=== PATIENT | male | born 1960 | race African-American/Black ===

== ENCOUNTER 2019-04-13 10:24 | Emergency (ER) | payer SELFPAY ==
[~2019-04-13] VITALS: Ht 182.9 cm; Wt 95.5 kg
[2019-04-13] MEDS ORDERED: KETOROLAC TROMETHAMINE 30 MG/ML VIAL IM ONE (11:45)
[2019-04-13] MEDS ORDERED: IOVERSOL 350 MG/ML 100 ML VIAL ONE (14:45)
[2019-04-13 15:11] LABS: BASOPHILS % (AUTO) 1.5 % (0.0-2.0); EOSINOPHILS % (AUTO) 3.7 % (1.0-6.0); HEMATOCRIT 39.3 % (41-53); HEMOGLOBIN 13.2 g/dL (13.5-17.5); LYMPHOCYTES # (AUTO) 1.4 K/uL (1.0-4.8); LYMPHOCYTES % (AUTO) 19.5 % (22.0-44.0); MEAN CORPUSCULAR HEMOGLOBIN 31.7 pg (26.0-34.0); MEAN CORPUSCULAR HGB CONC 33.6 G/dL (31.0-37.0); MEAN CORPUSCULAR VOLUME 95 fL (80-100); MONOCYTES # (AUTO) 0.8 K/uL (0.1-1.0); MONOCYTES % (AUTO) 11.3 % (2.0-9.0); NEUTROPHILS # (AUTO) 4.5 K/uL (1.8-7.7); PLATELET COUNT (AUTO) 278 K/uL (150-450); RED BLOOD CELL COUNT(AUTO) 4.16 MIL/uL (4.50-5.90); RED CELL DISTRIBUTION WIDTH 13.2 % (11.5-14.5)
[2019-04-13 15:42] LABS: ANION GAP 9 mmol/L (8-16); CARBON DIOXIDE 31 mmol/L (22-29); CHLORIDE 99 mmol/L (98-107); GLOMERULAR FILTR. RATE CALC > 60 mL/min (>60); GLUCOSE,RANDOM 109 mg/dL (70-110); POTASSIUM 3.3 mmol/L (3.5-5.1); SODIUM SERUM 139 mmol/L (136-145); UREA NITROGEN, BLOOD 11 mg/dL (7-18)
[2019-04-13 15:49] LABS: ALANINE AMINOTRANSFERASE 22 U/L (12-78); ALBUMIN 3.3 g/dL (3.4-5.0); ALKALINE PHOSPHATASE 57 U/L (46-116); ASPARTATE AMINOTRANSFERASE 19 U/L (15-37); BILIRUBIN,TOTAL 0.7 mg/dL (0.1-1.0); TOTAL PROTEIN, SERUM 7.5 g/dL (6.4-8.2)
[2019-04-13] MEDS ORDERED: CLINDAMYCIN 900 MG/D5% WATER 50 ML IV ONE (18:15)
[2019-04-13] MEDS ORDERED: POTASSIUM CHLORIDE 20 MEQ ER TABLET PO ONE (18:15)
[2019-04-13 20:20] VITALS: BP 118/68
== END 2019-04-13 20:00 | disposition short-term general hospital (02) ==
LOC: EMS 10:30
DX: L02.01 Cutaneous abscess of face (principal); K04.7 Periapical abscess without sinus; F12.90 Cannabis use, unspecified, uncomplicated
CPT/HCPCS: 36415; 70450; 70486; 70487; 80053; 85025; 96365; 96372; 99285; J1885; J3490; Q9967

== ENCOUNTER 2024-05-01 18:24 | Emergency (ER) | payer OTHER ==
[~2024-05-01] VITALS: Ht 182.9 cm; Wt 65.9 kg
[2024-05-01 20:53] LABS: APPEARANCE,URINE CLEAR (CLEAR); BILIRUBIN,URINE NEGATIVE (NEGATIVE); COLOR,URINE YELLOW (YELLOW); GLUCOSE, URINE (UA) NEGATIVE (NEGATIVE); LEUKOCYTE ESTERASE ,URINE NEGATIVE (NEGATIVE); NITRATE,URINE NEGATIVE (NEGATIVE); OCCULT BLOOD,URINE NEGATIVE (NEGATIVE); PH,URINE 5.5 (5.0-8.0); PROTEIN,URINE 30-70 mg/dL (NEGATIVE); SPECIFIC GRAVITIY, URINE 1.023 (1.003-1.030); UROBILINOGEN,URINE <=1.0 mg/dL (<=1.0)
[2024-05-01 20:55] LABS: BASOPHILS % (AUTO) 0.4 % (0.0-2.0); EOSINOPHILS % (AUTO) 0.1 % (1.0-6.0); HEMOGLOBIN 9.6 g/dL (13.5-17.5); LYMPHOCYTES # (AUTO) 0.4 K/uL (1.0-4.8); LYMPHOCYTES % (AUTO) 13.5 % (22.0-44.0); MEAN CORPUSCULAR HEMOGLOBIN 29.6 pg (26.0-34.0); MEAN CORPUSCULAR HGB CONC 32.1 G/dL (31.0-37.0); MEAN CORPUSCULAR VOLUME 92 fL (80-100); MONOCYTES # (AUTO) 0.3 K/uL (0.1-1.0); MONOCYTES % (AUTO) 8.4 % (2.0-9.0); NEUTROPHILS # (AUTO) 2.6 K/uL (1.8-7.7); NEUTROPHILS % (AUTO) 77.6 % (40.0-70.0); PLATELET COUNT (AUTO) 618 K/uL (150-450); RED BLOOD CELL COUNT(AUTO) 3.25 MIL/uL (4.50-5.90); RED CELL DISTRIBUTION WIDTH 14.2 % (11.5-14.5); WHITE BLOOD COUNT (AUTO) 3.3 K/uL (4.5-11.0)
[2024-05-01 21:09] LABS: ANION GAP 12 mmol/L (8-16); CALCIUM, TOTAL 8.4 mg/dL (8.8-10.5); CARBON DIOXIDE 26 mmol/L (22-29); CHLORIDE 96 mmol/L (98-107); CREATININE 0.91 mg/dL (0.60-1.30); GLOMERULAR FILTR. RATE CALC > 60 mL/min (>60); GLUCOSE,RANDOM 100 mg/dL (70-110); POTASSIUM 3.4 mmol/L (3.5-5.1); SODIUM SERUM 134 mmol/L (136-145); UREA NITROGEN, BLOOD 14 mg/dL (7-18)
[2024-05-01 21:13] LABS: ALANINE AMINOTRANSFERASE 11 U/L (12-78); ALBUMIN 2.4 g/dL (3.4-5.0); ALKALINE PHOSPHATASE 92 U/L (46-116); ASPARTATE AMINOTRANSFERASE 35 U/L (15-37); BILIRUBIN,TOTAL 0.4 mg/dL (0.1-1.0); LIPASE 27 U/L (16-77); TOTAL PROTEIN, SERUM 6.1 g/dL (6.4-8.2)
[2024-05-01 21:15] LABS: TROPONIN I-HIGH SENSITIVITY 4 ng/L (<76)
[2024-05-01 21:31] LABS: ALCOHOL, BLOOD (SERUM) < 3 mg/dL (0-10)
[2024-05-01] MEDS ORDERED: SODIUM CHLORIDE 0.9% 100 ML ONE (22:57)
[2024-05-01] MEDS ORDERED: IOHEXOL 350 MG/ML 100 ML VIAL ONE (22:58)
[2024-05-01] MEDS: FAMOTIDINE 20 MG/2 ML VIAL IVP ONE (23:03)
[2024-05-01] MEDS: MORPHINE SULFATE 2 MG/ML SYRINGE IVP ONE (23:04)
[2024-05-01] MEDS: SODIUM CHLORIDE 0.9% 1,000 ML IV ONE (23:04)
[2024-05-02] MEDS: MORPHINE SULFATE 2 MG/ML SYRINGE IVP ONE (00:51)
[2024-05-02 02:44] VITALS: BP 90/58; PULSE 69; RESP 15; TEMP 97.9; O2SAT 98
== END 2024-05-02 03:00 | disposition home or self-care (01) ==
LOC: EMS 18:24
DX: R16.0 Hepatomegaly, not elsewhere classified (principal); R10.33 Periumbilical pain; F12.90 Cannabis use, unspecified, uncomplicated
CPT/HCPCS: 99285; 74177; 96374; 93971; 76705; 96361; 96375; 80048; 80076; 81003; 83690; 84484; 85025; 36415; 93005; 96376; G0480; Q9967; J3490; J2270 ×2; J7050